=== PATIENT | female | born 1950 | race Caucasian/White ===

== ENCOUNTER 2025-06-05 08:52 | Outpatient (CLI) | payer MEDICARE, SELFPAY ==
--- NOTE | 2025-06-05 09:49 | P.ANES_ITS ---
Anesthesia Charges Start Date/Time Anesthesia Start Date: 06/05/25 Anesthesia Start Time: 09:24 Stop Date/Time Anesthesia Stop Date: 06/05/25 Anesthesia Stop Time: 09:45 Summary Extremes of Age - Over 70 or under 1: JOURNALIST Coding CPT Codes CPT Codes: ANES UPR GI NDSC PX NOS - 26611 ([id number]) P2 - PATIENT W/MILD SYST DISEASE, QK - LAUNCHMAN 2-4 CNCRNT ANES PROC, QX - JOURNALIST SVC W/ MD MED DIRECTION Additional Codes: Summary - Extremes of Age - Over 70 or under 1: JOURNALIST ([id number])
--- NOTE | 2025-06-05 09:49 | W.ANESCHARGE ---
Anesthesia Charges Start Date/Time Anesthesia Start Date: 06/05/25 Anesthesia Start Time: 09:24 Stop Date/Time Anesthesia Stop Date: 06/05/25 Anesthesia Stop Time: 09:45 Summary Extremes of Age - Over 70 or under 1: SUGAR TRUCKER Coding CPT Codes CPT Codes: ANES UPR GI NDSC PX NOS - 76763 ([id number]) P2 - PATIENT W/MILD SYST DISEASE, QK - CLOTH LAYER 2-4 CNCRNT ANES PROC, QX - SUGAR TRUCKER SVC W/ MD MED DIRECTION Additional Codes: Summary - Extremes of Age - Over 70 or under 1: SUGAR TRUCKER ([id number])
--- NOTE | 2025-06-05 09:51 | P.ANES_ITS ---
Anesthesia Charges Start Date/Time Anesthesia Start Date: 06/05/25 Anesthesia Start Time: 09:24 Stop Date/Time Anesthesia Stop Date: 06/05/25 Anesthesia Stop Time: 09:45 Summary Extremes of Age - Over 70 or under 1: MDA Coding CPT Codes CPT Codes: ANES UPR GI NDSC PX NOS - 07594 ([id number]) P2 - PATIENT W/MILD SYST DISEASE, QK - ALUMINIZER 2-4 CNCRNT ANES PROC, QX - BODY AND FENDER MECHANIC SVC W/ MD MED DIRECTION Additional Codes: Summary - Extremes of Age - Over 70 or under 1: MDA ([id number])
--- NOTE | 2025-06-05 09:51 | W.ANESCHARGE ---
Anesthesia Charges Start Date/Time Anesthesia Start Date: 06/05/25 Anesthesia Start Time: 09:24 Stop Date/Time Anesthesia Stop Date: 06/05/25 Anesthesia Stop Time: 09:45 Summary Extremes of Age - Over 70 or under 1: MDA Coding CPT Codes CPT Codes: ANES UPR GI NDSC PX NOS - 64916 ([id number]) P2 - PATIENT W/MILD SYST DISEASE, QK - DIE CAST DIE MAKER 2-4 CNCRNT ANES PROC, QX - TAKE DOWN SORTER SVC W/ MD MED DIRECTION Additional Codes: Summary - Extremes of Age - Over 70 or under 1: MDA ([id number])
== END 2025-06-05 08:53 | disposition home or self-care (01) ==
LOC: OP CLINIC 08:55
PROVIDERS: PCP Family Medicine; Visit Provider Internal Medicine Gastroenterology
DX: R13.10 Dysphagia, unspecified (principal); K22.2 Esophageal obstruction; K22.89 Other specified disease of esophagus; K44.9 Diaphragmatic hernia without obstruction or gangrene; R93.3 Abnormal findings on diagnostic imaging of other parts of digestive tract
CPT/HCPCS: 00731; 43239; 43248; 99100; J2704; J3490